=== PATIENT | female | born 1975 | race American Indian/Alaskan Native ===

== ENCOUNTER 2020-02-17 23:16 | Emergency (ER) | payer MEDICARE ==
[2020-02-18] MEDS ORDERED: ONDANSETRON 4 MG/2 ML INJ IV ONE (00:44)
[2020-02-18] MEDS ORDERED: HYDROmorphone 1 MG/1 ML INJ IV ONE (00:44)
--- NOTE | 2020-02-18 00:46 | Emergency Department Report ---
ED Abdominal Pain HPI - General Chief Complaint: Abdominal Pain Stated Complaint: ABDOMINAL PAIN, NAUSEA, AND HEADACHE PUI?: No Time Seen by Provider: 02/18/20 00:37 Source: patient Mode of arrival: Ambulatory Limitations: No Limitations - History of Present Illness Initial Comments: Patient is a 44-year-old female that presents emergency room with complaints of right lower quadrant pain and nausea and vomiting and migraine headache. Patient states all of her symptoms started yesterday. Patient states her symptoms are worsening. Patient states she has vomited multiple times. Patient states the pain is in her right lower quadrant. Patient states that the pain is a 10 out of 10. Patient states the pain is nonradiating. Patient states the pain is better with rest and worse with movement and vomiting. Patient denies fever and chills. Patient denies blood in her vomitus. Patient denies constipation. Patient states she is having a migraine headache. Patient states the pain is a 6 out of 10. Patient states she is having her normal migraine aura. Patient states she has a long history of migraines. Patient denies blurry vision. Patient denies neck pain. Patient denies neck stiffness. Patient denies fever chills. Patient denies dizziness and lightheadedness. Patient denies syncope. Patient denies this is the worst headache of her life. Patient denies recent travel. Patient denies recent international travel. Patient denies exposure to the novel coronavirus. Patient denies sick contacts. Patient denies fever and chills. Patient denies cough. Patient denies diarrhea. Patient denies coming in contact with anybody with symptoms of the novel coronavirus. MD Complaint: abdominal pain -: Sudden Location: RLQ Radiation: none Migration to: no migration Severity: severe Severity scale (0 -10): 10 Quality: stabbing Consistency: constant Improves With: rest Worsens With: vomiting, movement Associated Symptoms: nausea, vomiting. denies: diarrhea, fever, chills, constipation, dysuria, hematemesis, hematochezia, melena, hematuria, anorexia, syncope Treatments Prior to Arrival: NSAIDs - Related Data LMP (females 10-50): last week Previous Rx's Medication Instructions Recorded Last Taken Type HYDROcodone/APAP 7.5-325 [[place] 1 each PO Q6HR PRN #20 tablet 12/22/13 Unknown Rx 7.5/325 mg] Ibuprofen [Motrin] 600 mg PO Q8H PRN #60 tablet 12/22/13 Unknown Rx Sulfamethoxazole/Trimethoprim 1 each PO BID #14 tablet 12/22/13 Unknown Rx [Bactrim Ds] Ciprofloxacin HCl [Ciprofloxacin 500 mg PO Q12HR 10 Days #20 tab 02/18/20 Unknown Rx TAB] methylPREDNISolone [Medrol 4MG 4 mg PO DAILY 6 Days #1 tab.ds.pk 02/18/20 Unknown Rx DOSEPAK (21 tabs)] Allergies Allergy/AdvReac Type Severity Reaction Status Date / Time No Known Allergies Allergy Unverified 12/22/13 18:20 ED Review of Systems ROS: Stated complaint: ABDOMINAL PAIN, NAUSEA, AND HEADACHE Other details as noted in HPI Constitutional: denies: chills, fever Eyes: denies: eye pain, eye discharge, vision change ENT: denies: ear pain, throat pain Respiratory: denies: cough, shortness of breath, wheezing Cardiovascular: denies: chest pain, palpitations Endocrine: no symptoms reported Gastrointestinal: abdominal pain, nausea, vomiting. denies: diarrhea Genitourinary: denies: urgency, dysuria, discharge Musculoskeletal: denies: back pain, joint swelling, arthralgia Skin: denies: rash, lesions Neurological: headache. denies: weakness, paresthesias Psychiatric: denies: anxiety, depression Hematological/Lymphatic: denies: easy bleeding, easy bruising ED Past Medical Hx - Past Medical History Previous Medical History?: Yes Hx Headaches / Migraines: Yes Hx Psychiatric Treatment: Yes (Depression) Additional medical history: bipolar. depression - Surgical History Past Surgical History?: Yes Additional Surgical History: back surgery 2008. tubal ligation 2012 - Family History Family history: no significant - Social History Smoking Status: Current Every Day Smoker Substance Use Type: None - Medications Home Medications: Home Medications Medication Instructions Recorded Confirmed Last Taken Type HYDROcodone/APAP 7.5-325 [[place] 1 each PO Q6HR PRN #20 tablet 12/22/13 Unknown Rx 7.5/325 mg] Ibuprofen [Motrin] 600 mg PO Q8H PRN #60 tablet 12/22/13 Unknown Rx Sulfamethoxazole/Trimethoprim 1 each PO BID #14 tablet 12/22/13 Unknown Rx [Bactrim Ds] Ciprofloxacin HCl [Ciprofloxacin 500 mg PO Q12HR 10 Days #20 tab 02/18/20 Unknown Rx TAB] methylPREDNISolone [Medrol 4MG 4 mg PO DAILY 6 Days #1 tab.ds.pk 02/18/20 Unknown Rx DOSEPAK (21 tabs)] ED Physical Exam - General Limitations: No Limitations General appearance: alert, in no apparent distress - Head Head exam: Present: atraumatic, normocephalic - Eye Eye exam: Present: normal appearance, PERRL Pupils: Present: normal accommodation - ENT ENT exam: Present: mucous membranes moist - Neck Neck exam: Present: normal inspection - Respiratory Respiratory exam: Present: normal lung sounds bilaterally. Absent: respiratory distress - Cardiovascular Cardiovascular Exam: Present: regular rate, normal rhythm. Absent: systolic murmur, diastolic murmur, rubs, gallop - GI/Abdominal GI/Abdominal exam: Present: soft, tenderness (Right lower quadrant), normal bowel sounds. Absent: distended, guarding - Rectal Rectal exam: Present: deferred - Extremities Exam Extremities exam: Present: normal inspection - Back Exam Back exam: Present: normal inspection - Neurological Exam Neurological exam: Present: alert, oriented X3 - Psychiatric Psychiatric exam: Present: normal affect, normal mood - Skin Skin exam: Present: warm, dry, intact, normal color. Absent: rash ED Course Vital Signs 02/17/20 02/18/20 23:52 02:11 Temperature 98.7 F Pulse Rate 84 74 Respiratory 18 16 Rate Blood Pressure 157/98 Blood Pressure 177/98 [Left] O2 Sat by Pulse 100 Oximetry - Reevaluation(s) Reevaluation #1: Patient states she is feeling better. Patient states her abdominal pain and headache have improved. 02/18/20 01:38 Reevaluation #2: I discussed all results and clinical findings with patient. I discussed plan of care with patient. Patient agrees with plan of care. Patient is stable for discharge. Patient will be discharged home. Patient given discharge instructions. Patient voiced understanding of discharge instructions. 02/18/20 04:04 ED Medical Decision Making - Lab Data Result diagrams: 02/18/20 00:39 02/18/20 00:39 - Radiology Data Radiology results: report reviewed CT report reviewed. CT is read as no acute findings. - Medical Decision Making Patient is a 44-year-old female that presents emergency room with complaints of migraine, headache, nausea, vomiting, abdominal pain. Patient abdominal pain is right lower quadrant. Patient had a CT scan to rule out appendicitis and it was negative for acute findings. Patient had labs done which were essentially unremarkable except for a UTI. Patient given Dilaudid and Solu-Medrol and her headache responded well. Patient's abdominal pain also responded well. Patient stable for discharge. Patient discharged home with Solu-Medrol and a antibiotic. Patient given Solu-Medrol for her migraine and antibiotic for her UTI. Patient discharged home. Patient given discharge instructions. - Differential Diagnosis UTI, appendicitis, abdominal pain, nausea, status migrainosus Critical care attestation.: If time is entered above; I have spent that time in minutes in the direct care of this critically ill patient, excluding procedure time. ED Disposition Clinical Impression: Migraine Qualifiers: Migraine type: unspecified Status migrainosus presence: with status migrainosus Intractability: not intractable Qualified Code(s): G43.901 - Migraine, unspecified, not intractable, with status migrainosus Abdominal pain Qualifiers: Abdominal location: right lower quadrant Qualified Code(s): R10.31 - Right lower quadrant pain Nausea & vomiting Qualifiers: Vomiting type: unspecified Vomiting Intractability: non-intractable Qualified Code(s): R11.2 - Nausea with vomiting, unspecified UTI (urinary tract infection) Qualifiers: Urinary tract infection type: acute cystitis Hematuria presence: with hematuria Qualified Code(s): N30.01 - Acute cystitis with hematuria Disposition: TO HOME OR SELFCARE Is pt being admited?: No Does the pt Need Aspirin: No Condition: Stable Instructions: Migraine Headache (ED), Acute Headache (ED), Abdominal Pain (ED), Urinary Tract Infection in Women (ED) Additional Instructions: Patient to follow-up with primary care in 2 to 3 days. Patient to follow-up with neurology in 2 to 3 days. Patient to rest. Patient to increase water. Patient to avoid strenuous exercise or heavy lifting until cleared by neurology. Patient to take Tylenol or ibuprofen as needed for pain. Patient to take meds as directed. Patient to return to the ER if condition worsens, changes or new symptoms arise. Prescriptions: Ciprofloxacin HCl [Ciprofloxacin TAB] 500 mg PO Q12HR 10 Days #20 tab methylPREDNISolone [Medrol 4MG DOSEPAK (21 tabs)] 4 mg PO DAILY 6 Days #1 tab.ds.pk Referrals: [facility] MD RUBY [Primary Care Provider] - 2-3 Days ANDRIY SANCHEZ MD [Staff Physician] - 2-3 Days Time of Disposition: 04:04
[2020-02-18 01:22] LABS: Basophils % (Auto) 0.6 % (0.0-1.8); Eosinophils # (Auto) 0.1 K/mm3 (0.0-0.4); Eosinophils % (Auto) 0.9 % (0.0-4.3); Hematocrit 38.9 % (30.3-42.9); Hemoglobin 13.2 gm/dl (10.1-14.3); Lymphocytes # (Auto) 2.3 K/mm3 (1.2-5.4); Lymphocytes % (Auto) 36.9 % (13.4-35.0); Mean Corpuscular HGB Conc 34 % (30-34); Mean Corpuscular Volume 88 fl (79-97); Monocytes # (Auto) 0.4 K/mm3 (0.0-0.8); Monocytes % (Auto) 6.1 % (0.0-7.3); Platelet Count 196 K/mm3 (140-440); Red Blood Count 4.41 M/mm3 (3.65-5.03); Red Cell Distribution Width 14.7 % (13.2-15.2)
[2020-02-18 01:42] LABS: Alanine Aminotransferase 12 units/L (7-56); Albumin 3.8 g/dL (3.9-5); BUN/Creatinine Ratio 10; Blood Urea Nitrogen 8 mg/dL (7-17); Calcium 8.9 mg/dL (8.4-10.2); Hemolysis Index 3
[2020-02-18 02:13] VITALS: BP 177/98
--- NOTE | 2020-02-18 02:21 | Cat Scan Report ---
CT ABDOMEN AND PELVIS WITH CONTRAST HISTORY: Right lower quadrant abdominal pain. COMPARISON: None TECHNIQUE: Routine abdominal and pelvic CT exam performed following intravenous contrast administrat ion. Patient receiving 100 mL IV Omnipaque 300. All CT scans at this location are performed using CT dose reduction for ALARA by means of automated exposure control. FINDINGS: CT ABDOMEN: Lung Bases: No significant abnormality. Liver: No significant abnormality. Biliary: No significant abnormality. Spleen: No significant abnormality. Unenlarged. Pancreas: No significant abnormality. Adrenals: No significant abnormality. Kidneys: No significant abnormality. Lymphatics: No lymphadenopathy. Vasculature: No significant abnormality. Bowel/Peritoneum: No significant abnormality. No free air. No free fluid. Normal appendix. CT PELVIC: : There are some tiny bilateral ovarian cysts. Uterus appears normal. Lymphatics: No lymphadenopathy. Osseous Structures: No aggressive appearing osseous lesions. Additional Findings: None IMPRESSION: 1. No acute findings. The appendix appears normal. Signer Name: Tay Brown MD Signed: 02/18/2020 2:16 AM Workstation Name: [email or web address]
[2020-02-18] MEDS ORDERED: methylPREDNISolone Sod Succinate 125 MG/2 ML INJ IV ONE (03:38)
[2020-02-18 04:02] LABS: Bacteria,Urine 1+ /HPF (Negative); Bilirubin,Urine NEG (Negative); Blood,Urine NEG (Negative); Color,Urine Yellow (Yellow); Mucus,Urine FEW /HPF; Protein,Urine <15 mg/dL mg/dL (Negative)
== END 2020-02-18 04:37 | disposition home or self-care (01) ==
LOC: ED 23:16
DX: G43.909 Migraine, unspecified, not intractable, without status migrainosus (principal); R11.2 Nausea with vomiting, unspecified; N39.0 Urinary tract infection, site not specified; F31.9 Bipolar disorder, unspecified; F17.200 Nicotine dependence, unspecified, uncomplicated; Z98.51 Tubal ligation status; Z98.890 Other specified postprocedural states; Z79.1 Long term (current) use of non-steroidal anti-inflammatories (NSAID); Z79.899 Other long term (current) drug therapy
CPT/HCPCS: 36415; 74177; 80053; 81001; 83690; 84703; 85025; 87086; 96374; 99284; J1170; J2405; J2930; Q9967; 96375

== ENCOUNTER 2020-06-30 13:26 | Emergency (ER) | payer SELFPAY ==
[2020-06-30 13:37] VITALS: BP 166/110
--- NOTE | 2020-06-30 14:14 | XRay Report ---
RIGHT ANKLE 3 VIEWS INDICATION / CLINICAL INFORMATION: fall, right ankle/foot pain. COMPARISON: None available. FINDINGS: The right ankle is intact and without visible fracture or dislocation. Alignment is normal. Incidental note is made of a small plantar calcaneal spur. IMPRESSION: No fracture or dislocation involving the right ankle. RIGHT FOOT, 3 VIEWS INDICATION / CLINICAL INFORMATION: fall, right ankle/foot pain. COMPARISON: None available. FINDINGS: Small plantar calcaneal spur. No fracture or dislocation identified. No significant soft tissue abnor mality. IMPRESSION: No fracture or dislocation involving the right foot. Signer Name: Cleo Ocampo MD Signed: 06/30/2020 2:10 PM Workstation Name: [employer] [employer] [id number]
--- NOTE | 2020-06-30 14:42 | Emergency Department Report ---
ED Fall HPI - General Chief Complaint: Fall Stated Complaint: FOOT AND ANKLE PAINS Time Seen by Provider: 06/30/20 13:41 Source: patient Mode of arrival: Ambulatory - History of Present Illness Initial Comments: pt is a 44 yo female who presents to the ED with c/o a fall that occurred three weeks ago. she states that her shoe was untied and she accidentally tripped over her shoelace. she states that she had an inversion injury of her right ankle. she states she is having right ankle and foot pain since then. she has been ambulatory since then. she denies any numbness or weakness. she denies ever injuring in the past. no pmhx. no allergies to meds. she states she has been using ice and elevating the leg. - Related Data Previous Rx's Medication Instructions Recorded Last Taken Type HYDROcodone/APAP 7.5-325 [[place] 1 each PO Q6HR PRN #20 tablet 12/22/13 Unknown Rx 7.5/325 mg] Ibuprofen [Motrin] 600 mg PO Q8H PRN #60 tablet 12/22/13 Unknown Rx Sulfamethoxazole/Trimethoprim 1 each PO BID #14 tablet 12/22/13 Unknown Rx [Bactrim Ds] Ciprofloxacin HCl [Ciprofloxacin 500 mg PO Q12HR 10 Days #20 tab 02/18/20 Unknown Rx TAB] methylPREDNISolone [Medrol 4MG 4 mg PO DAILY 6 Days #1 tab.ds.pk 02/18/20 Unknown Rx DOSEPAK (21 tabs)] Naproxen [EC-Naprosyn] 500 mg PO BID PRN #14 tablet. 06/30/20 Unknown Rx Allergies Allergy/AdvReac Type Severity Reaction Status Date / Time No Known Allergies Allergy Unverified 12/22/13 18:20 ED Review of Systems ROS: Stated complaint: FOOT AND ANKLE PAINS Other details as noted in HPI Comment: All other systems reviewed and negative ED Past Medical Hx - Past Medical History Previous Medical History?: Yes Hx Headaches / Migraines: Yes Hx Psychiatric Treatment: Yes (Depression) Additional medical history: bipolar. depression - Surgical History Past Surgical History?: Yes Additional Surgical History: back surgery 2008. tubal ligation 2012 - Social History Smoking Status: Never Smoker Substance Use Type: None - Medications Home Medications: Home Medications Medication Instructions Recorded Confirmed Last Taken Type HYDROcodone/APAP 7.5-325 [[place] 1 each PO Q6HR PRN #20 tablet 12/22/13 Unknown Rx 7.5/325 mg] Ibuprofen [Motrin] 600 mg PO Q8H PRN #60 tablet 12/22/13 Unknown Rx Sulfamethoxazole/Trimethoprim 1 each PO BID #14 tablet 12/22/13 Unknown Rx [Bactrim Ds] Ciprofloxacin HCl [Ciprofloxacin 500 mg PO Q12HR 10 Days #20 tab 02/18/20 Unknown Rx TAB] methylPREDNISolone [Medrol 4MG 4 mg PO DAILY 6 Days #1 tab.ds.pk 02/18/20 Unknown Rx DOSEPAK (21 tabs)] Naproxen [EC-Naprosyn] 500 mg PO BID PRN #14 tablet. 06/30/20 Unknown Rx ED Physical Exam - General Limitations: No Limitations General appearance: alert, in no apparent distress - Head Head exam: Present: atraumatic, normocephalic - Eye Eye exam: Present: normal appearance - ENT ENT exam: Present: mucous membranes moist - Respiratory Respiratory exam: Absent: respiratory distress, accessory muscle use - Extremities Exam Extremities exam: Present: other (ttp to the right anterior ankle and right dorsal foot, no edema, no increased warmth, no skin changes, no deformity, FROM of the RLE, neurovascularly intact) - Neurological Exam Neurological exam: Present: alert, oriented X3 - Psychiatric Psychiatric exam: Present: normal affect, normal mood - Skin Skin exam: Present: warm, dry, intact ED Course Vital Signs 06/30/20 13:34 Temperature 97.9 F Pulse Rate 84 Respiratory 20 Rate Blood Pressure 166/110 O2 Sat by Pulse 100 Oximetry ED Medical Decision Making - Radiology Data Radiology results: report reviewed Ordering Physician: ARABELLA NEIL Date of Service: 06/30/20 Procedure(s): XR foot 3+V RT Accession Number(s): [id number] cc: ARABELLA NEIL Fluoro Time In Minutes: RIGHT ANKLE 3 VIEWS INDICATION / CLINICAL INFORMATION: fall, right ankle/foot pain. COMPARISON: None available. FINDINGS: The right ankle is intact and without visible fracture or dislocation. Alignment is normal. Incidental note is made of a small plantar calcaneal spur. IMPRESSION: No fracture or dislocation involving the right ankle. RIGHT FOOT, 3 VIEWS INDICATION / CLINICAL INFORMATION: fall, right ankle/foot pain. COMPARISON: None available. FINDINGS: Small plantar calcaneal spur. No fracture or dislocation identified. No significant soft tissue abnormality. IMPRESSION: No fracture or dislocation involving the right foot. Signer Name: Cleo Ocampo MD Signed: 06/30/2020 2:10 PM Workstation Name: [id number] Transcribed By: Dictated By: Cleo Ocampo MD Electronically Authenticated By: Cleo Ocampo MD Signed Date/Time: 06/30/20 1410 DD/ 1409 TD/TT: - Medical Decision Making pt is a 44 yo female who presents to the ED with c/o a fall that occurred three weeks ago. she states that her shoe was untied and she accidentally tripped over her shoelace. she states that she had an inversion injury of her right ankle. she states she is having right ankle and foot pain since then. she has been ambulatory since then. she denies any numbness or weakness. she denies ever injuring in the past. no pmhx. no allergies to meds. she states she has been using ice and elevating the leg. on exam: ttp to the right anterior ankle and right dorsal foot, no edema, no increased warmth, no skin changes, no deformity, FROM of the RLE, neurovascularly intact. on exam:ttp to the right anterior ankle and right dorsal foot, no edema, no increased warmth, no skin changes, no deformity, FROM of the RLE, neurovascularly intact. XR right ankle: IMPRESSION: No fracture or dislocation involving the right ankle. XR right foot: IMPRESSION: No fracture or dislocation involving the right foot. Symptoms likely related to mild sprain. Discussed RICE therapy with patient. Patient given prescription for naproxen. Patient be referred to orthopedic doctor. Advised patient please take medication as prescribed as needed. may ice for 15 minutes at a time, rest, elevation of the leg. follow up with an orthopedic doctor. return to the emergency room for any new or worsening symptoms Critical care attestation.: If time is entered above; I have spent that time in minutes in the direct care of this critically ill patient, excluding procedure time. ED Disposition Clinical Impression: Right foot pain Fall Qualifiers: Encounter type: initial encounter Qualified Code(s): W19.XXXA - Unspecified fall, initial encounter Right ankle pain Qualifiers: Chronicity: acute Qualified Code(s): M25.571 - Pain in right ankle and joints of right foot Heel spur Qualifiers: Laterality: right Qualified Code(s): M77.31 - Calcaneal spur, right foot Disposition: TO HOME OR SELFCARE Is pt being admited?: No Does the pt Need Aspirin: No Condition: Stable Instructions: Heel Spur, Ankle Pain Additional Instructions: please take medication as prescribed as needed. may ice for 15 minutes at a time, rest, elevation of the leg. follow up with an orthopedic doctor. return to the emergency room for any new or worsening symptoms X-rays shows no signs of fracture or dislocation Prescriptions: Naproxen [EC-Naprosyn] 500 mg PO BID PRN #14 tablet.dr PRN Reason: pain Referrals: PRIMARY CAREMD [Primary Care Provider] - 2-3 Days GIRMA PERRY MD [Staff Physician] - 2-3 Days [facility] [Provider Group] - 2-3 Days Forms: Work/School Release Form(ED) Time of Disposition: 14:40 Print Language: HUNGARIAN
== END 2020-06-30 15:00 | disposition home or self-care (01) ==
LOC: ED 13:26
DX: M77.31 Calcaneal spur, right foot (principal); M25.571 Pain in right ankle and joints of right foot; F31.9 Bipolar disorder, unspecified; G43.909 Migraine, unspecified, not intractable, without status migrainosus; Z98.890 Other specified postprocedural states; Z79.899 Other long term (current) drug therapy; Z98.51 Tubal ligation status; W18.30XA Fall on same level, unspecified, initial encounter; Y93.89 Activity, other specified; Y92.89 Other specified places as the place of occurrence of the external cause; Y99.8 Other external cause status
CPT/HCPCS: 99283

== ENCOUNTER 2020-12-28 13:19 | Emergency (ER) | payer OTHER ==
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
[2020-12-28 17:44] VITALS: BP 186/108
== END 2020-12-28 17:44 | disposition home or self-care (01) ==
LOC: ED 13:19
DX: S13.9XXA Sprain of joints and ligaments of unspecified parts of neck, initial encounter (principal); S39.012A Strain of muscle, fascia and tendon of lower back, initial encounter; F31.9 Bipolar disorder, unspecified; G43.909 Migraine, unspecified, not intractable, without status migrainosus; Z98.51 Tubal ligation status; Z98.890 Other specified postprocedural states; Z79.899 Other long term (current) drug therapy; V49.49XA Driver injured in collision with other motor vehicles in traffic accident, initial encounter; Y92.410 Unspecified street and highway as the place of occurrence of the external cause; Y93.89 Activity, other specified; Y99.8 Other external cause status
CPT/HCPCS: 99281